=== PATIENT | male | born 2005 | race Caucasian/White ===

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

== ENCOUNTER 2024-06-21 21:33 | Emergency (ER) | payer OTHER, SELFPAY ==
[2024-06-21 21:59] VITALS: BP 129/65; PULSE 89; RESP 16; TEMP 36.6; O2SAT 99
--- NOTE | 2024-06-22 00:54 | ECG_ITS ---
Test Date: 2024-06-22 01:19:05 Measurements Intervals [place] Rate: 63 P: 44 [place]: 168 QRS: 59 QRSD: 88 T: 43 QT: 417 QTc: 428 Interpretive Statements SINUS RHYTHM No previous ECG available for comparison Electronically Signed On 06-22-2024 14:43:26 CDT by Darron Garcia M.D.
[2024-06-22 00:56] VITALS: RESP 18; O2SAT 97
[2024-06-22 01:14] VITALS: BP 125/79; PULSE 71; RESP 14; O2SAT 99
[2024-06-22] MEDS: SODIUM CHLORIDE 0.9% IV 1,000 ML 999 ML IV CONT ×2 (01:14→01:15)
[2024-06-22 01:24] LABS: Basophils Absolute Auto 0.1 K/mm3 (0.0-0.1); Basophils Percent Auto 0.7 % (0.2-1.2); Eosinophils Absolute Auto 0.1 K/mm3 (0-0.3); Hematocrit 46.7 % (42.0-52.0); Hemoglobin 16.3 g/dL (14.0-18.0); Immature Granulocyte Absolute 0.06 K/mm3 (0.00-0.031); Immature Granulocyte Percent A 0.5 % (0-0.5); Lymphocytes Absolute Auto 3.14 K/mm3 (0.9-3.2); Lymphocytes Percent Auto 24.6 % (18.3-44.2); Mean Corpuscular HGB Conc 34.9 g/dl (32-36); Mean Corpuscular Volume 88.8 fl (80-100); Mean Platelet Volume 11.4 fl (7.4-10.4); Monocytes Absolute Auto 1.7 K/mm3 (0.1-0.6); Neutrophils Absolute Auto 7.7 K/mm3 (1.3-6.7); Neutrophils Percent Auto 60.2 % (45.5-73.1); Platelet Count Result 231 k/mm3 (150-375); Red Blood Count 5.26 M/mm3 (4.6-6.20); Red Cell Distribution Width 11.6 % (11.5-14.5); White Blood Count 12.7 K/mm3 (4.5-10.0)
[2024-06-22 01:35] LABS: Lactic Acid Reflex 1.1 mmol/L (0.7-2.0)
[2024-06-22 01:36] LABS: Alanine Aminotransferase 42 U/L (6-50); Albumin Level 5.2 g/dL (3.7-5.6); Alkaline Phosphatase 78 U/L (58-237); Anion Gap 13 mmol/L (4-12); Aspartate Amino Transferase 38 U/L (17-59); Bilirubin,Total 1.9 mg/dL (0.2-1.3); Blood Urea Nitrogen 18 mg/dL (8-21); Calcium 9.2 mg/dL (8.9-10.7); Carbon Dioxide 28 mmol/L (22-30); Chloride 98 mmol/L (98-107); Creatine Kinase 181 U/L (55-170); Estimated CRCL calculation 108 ml/min; Estimated Glomerular Filt Rate > 60; Glucose 85 mg/dL (65-110); Magnesium 2.2 mg/dL (1.6-2.3); Potassium 3.9 mmol/L (3.4-5.0); Sodium 139 mmol/L (134-143)
[2024-06-22 01:39] LABS: Add Urine Microscopic? YES; Appearance Urine Turbid (Clear); Bacteria Urine None Seen /hpf; Bilirubin Urine Negative (Negative); Blood Urine Negative (Negative); Color Urine Yellow (Yellow); Glucose Urine UA Negative (Negative); Ketones Urine Negative (Negative); Leukocyte Esterase Ur Negative LEU/UL (Negative); Nitrate Urine Negative (Negative); Non Pathogenic Casts 0-2; Protein Urine Negative (Negative); RBC Urine 0-2 /hpf (0-2); Specific Grav Ur 1.017 (1.001-1.035); Squamous Epithelial Cell Urine None Seen /hpf (Few); WBC Urine 0-5 /hpf (0-3)
--- NOTE | 2024-06-22 02:16 | ED.GENADULT ---
HPI - General Adult General Chief complaint: Recheck/Abnormal Lab/Rx Stated complaint: heat exhaustion Time Seen by Provider: 06/22/24 02:10 History of Present Illness HPI narrative: Patient 18-year-old gentleman who presents emergency department with chief complaint of possible heat exhaustion. Patient reports that he was outside working digging holes and reports that he started feeling weak heart rate was running in the 90s patient reports that he is concerned that he may be dehydrated and is electrolytes may be off. Related Data Home Medications Medication Instructions Recorded Confirmed No Home Medications 03/31/21 03/31/21 Allergies Allergy/AdvReac Type Severity Reaction Status Date / Time No Known Allergies Allergy Verified 10/31/23 19:25 Review of Systems Review of Systems: A 10 system review of systems was completed on the patient and is negative except for what is stated in the HPI. Nursing and ancillary documentation was reviewed. [facility] Past Medical History Medical History No acute medical problems Social History Social History Smoking status: Never smoker Alcohol intake: never Substance use: never Living arrangements: with family Occupation/Education: student Gender identity (if verbalized by the patient): Male Exam Narrative: GENERAL: Well-appearing, well-nourished, and in no acute distress. HEAD: Normocephalic, atraumatic. EYES: PERRLA and EOMI. ENT: Nares clear, no rhinorrhea or epistaxis. Mucous membranes moist. NECK: Supple. CHEST: Clear to auscultation. No respiratory distress. HEART: Regular rate and rhythm. No murmur heard. Normal peripheral pulses. ABDOMEN: Soft, nontender, nondistended, normal active bowel sounds. EXTREMITIES: Normal range of motion. No edema. SKIN: Warm, dry, no rash. NEURO: No focal deficits. Alert and oriented x3. PSYCH: Normal mood and affect. Course Vital Signs Vital signs: Vital Signs Temperature 36.6 C 06/21/24 21:59 Pulse Rate 89 06/21/24 21:59 Respiratory Rate 16 06/21/24 21:59 Blood Pressure 129/65 06/21/24 21:59 Pulse Oximetry 99 06/21/24 21:59 Oxygen Delivery Room Air 06/21/24 21:59 Temperature 36.6 C 06/21/24 21:59 Pulse Rate 71 06/22/24 01:14 Respiratory Rate 14 06/22/24 01:14 Blood Pressure 125/79 06/22/24 01:14 Pulse Oximetry 99 06/22/24 01:14 Oxygen Delivery Room Air 06/21/24 21:59 Medical Decision Making MDM Narrative Medical decision making narrative: Differential diagnosis includes electrolyte abnormality, dehydration, heat exhaustion, EKG was obtained showed sinus rhythm rate of [address] elevation or ST depression Laboratory studies were obtained which showed a white count of 12.7 hemoglobin was 16.3 electrolytes were normal except for a bilirubin of 1.9 CK was 181 urinalysis showed no acute abnormality Patient received 2 L normal saline bolus is feeling much better at this time. Vital Signs Vital Signs: Vital Signs Temperature 36.6 C 06/21/24 21:59 Pulse Rate 89 06/21/24 21:59 Respiratory Rate 16 06/21/24 21:59 Blood Pressure 129/65 06/21/24 21:59 Pulse Oximetry 99 06/21/24 21:59 Oxygen Delivery Room Air 06/21/24 21:59 Temperature 36.6 C 06/21/24 21:59 Pulse Rate 71 06/22/24 01:14 Respiratory Rate 14 06/22/24 01:14 Blood Pressure 125/79 06/22/24 01:14 Pulse Oximetry 99 06/22/24 01:14 Oxygen Delivery Room Air 06/21/24 21:59 Lab Data 06/22/24 01:11 06/22/24 01:11 Labs: Lab Results 06/22/24 06/22/24 Range/Units 01:11 01:14 WBC 12.7 H (4.5-10.0) K/mm3 RBC 5.26 (4.6-6.20) M/mm3 Hgb 16.3 (14.0-18.0) g/dL Hct 46.7 (42.0-52.0) % MCV 88.8 (80-100) fl MCH 31.0 (26-34) pg MCHC 34.9 (32-36) g/dl RDW 11.6 (11.5-1
[2024-06-22 02:35] VITALS: BP 120/78; PULSE 76; RESP 14; O2SAT 99
== END 2024-06-22 02:41 | disposition home or self-care (01) ==
PROVIDERS: Physician Assistant; Emergency Provider Emergency Medicine; PCP Nurse Practitioner
DX: E86.0 Dehydration (principal)
CPT/HCPCS: 36415; 80053; 81001; 82550; 83605; 83735; 85025; 93005; 96360; 99283; J7030

== ENCOUNTER 2025-07-17 14:17 | Emergency (ER) | payer OTHER, SELFPAY ==
--- NOTE | 2025-07-17 14:25 | ED_ITS ---
HPI - General Adult General Chief complaint: Upper Respiratory Infection Stated complaint: Cough/Congestion Time Seen by Provider: 07/17/25 14:26 Source: patient Mode of arrival: ambulatory Limitations: no limitations History of Present Illness HPI narrative: 19 yo M presents with c/o cough, chest congestion, fatigue and fever for 3 days. Pt's girlfriend recenlty at pneumonia and just finished abx. Pt denies SOB. All systems reviewed and negative except as noted above. Related Data Allergies Allergy/AdvReac Type Severity Reaction Status Date / Time No Known Allergies Allergy Verified 07/17/25 14:22 [facility] Past Medical History Medical History No acute medical problems Social History Social History Smoking status: Never smoker Alcohol intake: never Substance use: never Living arrangements: with family Occupation/Education: student Gender identity (if verbalized by the patient): Male Comments At time of signature, agree with nursing past medical, surgical, social and family history. There is no relevant family history pertinent to the presenting complaint. Exam Narrative: GENERAL: This is a well-nourished, well-developed patient, in no apparent distress. HEAD: normocephalic, atraumatic. EYES: PERRL. Sclera clear/white. Vision is grossly intact. EARS: External ears normal, auditory canals clear and without drainage, TMs normal without perforation. Hearing grossly intact. NOSE: External nose normal with nasal congestion, clear nasal drainage THROAT: Mucous membranes moist, posterior pharynx clear. NECK: Neck supple, non-tender without lymphadenopathy, masses or thyromegaly. CARDIOVASCULAR: Regular rate and rhythm without murmurs, gallops, or rubs. RESPIRATORY: Rhonchi to right upper lung field Breath sounds equal bilaterally. No wheezes, rales SKIN: warm, Dry, intact with no suspicious lesions or rash, good texture and turgor. NEURO: awake, alert, and oriented to person, place and time. There were no obvious focal neurologic abnormalities. EXTREMITIES: No joint tenderness, effusion, or edema noted. Course Course Level of Care: Express Care Visit Vital Signs Vital signs: Reviewed Medical Decision Making [facility] Narrative Medical decision making narrative: Will treat patient with antibiotic for pneumonia due to exam findings and recent exposure to pneumonia. Patient was offered a chest x-ray today and he did not feel was necessary. Patient is well-appearing, nontoxic. Will follow up with primary care physician as needed. Discharge Plan Discharge Clinical Impression: Pneumonia Qualifiers: Pneumonia type: due to unspecified organism Patient Disposition: Home Condition: Stable Instructions: Antibiotic Form, Bacterial Pneumonia (ED) Additional Instructions: Take antibiotic as prescribed until gone. Take Tylenol or ibuprofen every 6-8 hours as needed for pain and fever. Drink at least 64 oz of water a day. See your doctor if symptoms are not improving. Patient Language: Tajik Prescriptions: New doxycycline hyclate 100 mg capsule 100 mg PO BID 7 Days Qty: 14 0RF benzonatate 200 mg capsule 200 mg PO TID PRN (Reason: cough) Qty: 20 0RF Follow-up/Referrals: PHYSICIAN,CANCER REGISTRY COORDINATOR [Primary Care Provider, Internal Medicine] Time of Disposition: 14:34
[2025-07-17 14:31] VITALS: BP 119/81; PULSE 80; RESP 16; TEMP 37.1; O2SAT 98
== END 2025-07-17 14:35 | disposition home or self-care (01) ==
PROVIDERS: Emergency Provider Nurse Practitioner Family
DX: J18.9 Pneumonia, unspecified organism (principal)
CPT/HCPCS: 99213; G0463